=== PATIENT | female | born 1980 | race African-American/Black ===

== ENCOUNTER 2019-01-01 18:12 | Inpatient (IN) | payer OTHER ==
[2019-01-01 21:21] VITALS: BMI 20.3
--- NOTE | 2019-01-02 00:31 | HP ---
"CIWA Score Nausea/Vomitin (Queasy,vomitied earlier) Muscle Tremors: 4-Moderate,w/Arms Extend Anxiety: 2 Agitation: 1-Slight > Activity Paroxysmal Sweats: 3 (Increased facial moisture) Orientation: 0-Oriented Tacttile Disturbances: 1-Very Mild Itch/Numbness Auditory Disturbances: 0-None Visual Disturbances: 0-None Headache: 0-None Present CIWA-Ar Total Score: 13 - Admission Criteria OASAS Guidelines: Admission for Medically Managed Detox: Requires at least one of the followin. CIWA greater than 12 2. Seizures within the past 24 hours 3. Delirium tremens within the past 24 hours 4. Hallucinations within the past 24 hours 5. Acute intervention needed for co occurring medical disorder 6. Acute intervention needed for co occurring psychiatric disorder 7. Severe withdrawal that cannot be handled at a lower level of care (continued vomiting, continued diarrhea, abnormal vital signs) requiring intravenous medication and/or fluids 8. Patient presents the following: CIWA greater than 12 Admission Criteria Met: Admission criteria met Admission ROS [facility] Chief Complaint: Here for alcohol detox. Allergies/Adverse Reactions: Allergies Allergy/AdvReac Type Severity Reaction Status Date / Time No Known Allergies Allergy Verified 01/01/19 21:14 History of Present Illness: First admission for this 38 yo who presents w/ alcohol withdrawal seeking detox. States mandated into tx by ACS. MAGED: 0.0 UTox: + THC HCG: Neg Denies seizures, blackouts, or overdoses. Alcohol use since age 15. Currently drinks 2 pints liquor daily x 2 years. States last drink 2 days ago. Marijuana use since age 14. Currently smokes 2x/month. Nicotine use since age 17. Currently smokes 1/2 PPD. PMHx: Eczema; Pancreatitis; Hodgkin's lymphoma (remission x 4 years)[facility] MHHx: Depression. Denies thoughts of harming self or others. No MH Provider. No MH meds. SHx: Domiciled. Unemployed. Denies legal issues. Search Terms: Colleen Peterson, 1980 Search Date: 01/02/2019 12:16:35 AM The Drug Utilization Report below displays all of the controlled substance prescriptions, if any, that your patient has filled in the last twelve months. The information displayed on this report is compiled from pharmacy submissions to the Department, and accurately reflects the information as submitted by the pharmacies. This report was requested by: Aura Gonzalez | Reference #: [id number] There are no results for the search terms that you entered. Exam Limitations: No Limitations - Ebola screening Have you traveled outside of the country in the last 21 days: No (N) Have you had contact with anyone from an Ebola affected area: No Have you been sick,other than usual withdrawal symptoms: No Do you have a fever: No - Review of Systems Constitutional: Chills, Weight Stable EENT: reports: Blurred Vision Respiratory: reports: No Symptoms reported Cardiac: reports: No Symptoms Reported GI: reports: Vomiting (yesterday.), Abdominal cramping, Other : reports: No Symptoms Reported Musculoskeletal: reports: No Symptoms Reported Integumentary: reports: Rash (Severe eczema - on prednisone and hydroxyzone) Neuro: reports: Tingling (Toes of both feet) Endocrine: reports: No Symptoms Reported Hematology: reports: Other (Has a central port for chemotherapy. Not flushed in over a year.) Psychiatric: reports: Orientated x3, Anxious, Depressed (Denies thoughts of harming self or others.) Patient History - PPD History Previous Implant?: Yes (Will order TB Gold (QFT). Skin disorder. ) Documented Results: Negative w/proof Implanted On Prior R Admission?: No PPD to be Administered?: No - Reproductive History Patient is a Female of Child Bearing Age (11 -55 yrs old): Yes Last Menstrual Period: 12/31/18 Patient : Yes - Smoking Cessation Smoking history: Current every day smoker Have you smoked in the past 12 months: Yes Aproximately how many cigarettes per day: 10 Hx Chewing Tobacco Use: No Initiated information on smoking cessation: Yes 'Breaking Loose' booklet given: 01/02/19 - Substance & Tx. History Hx Alcohol Use: Yes Hx Substance Use: Yes Substance Use Type: Alcohol, Marijuana Hx Substance Use Treatment: Yes (in-patient senior living) - Substances abused Alcohol Substance route: Oral Frequency: Daily Amount used: 1 pint of Maribel/daily Age of first use: 15 Date of last use: 12/30/18 Admission Physical Exam BHS - Vital Signs Vital Signs: Vital Signs - 24 hr 01/01/19 21:07 Temperature 99.2 F Pulse Rate 98 H Respiratory 16 Rate Blood Pressure 126/84 - Physical General Appearance: Yes: Mild Distress, Thin, Tremorous, Sweating (Increased facial moisture), Anxious HEENTM: Yes: EOMI (Jerking movement of eyes upon lateral gaze), Hearing grossly Normal, Normocephalic, Normal Voice, GEOVANNI, Pharynx Normal Respiratory: Yes: Lungs Clear (Pulse Ox = 97 %), Normal Breath Sounds, No Respiratory Distress Neck: Yes: No masses,lesions,Nodules, Supple Breast: Yes: Breast Exam Deferred Cardiology: Yes: Regular Rhythm, Regular Rate, S1, S2 Abdominal: Yes: Non Tender, Flat, Soft, Increased Bowel Sounds Genitourinary: Yes: Within Normal Limits Back: Yes: Normal Inspection Musculoskeletal: Yes: full range of Motion, Gait Steady Extremities: Yes: Normal Capillary Refill, Tremors Neurological: Yes: import/export analyst II-XII NML intact (Jerking movement of eyes upon lateral gaze), Fully Oriented, Alert, Motor Strength 5/5, Normal Response Integumentary: Yes: Normal Color, Warm, Rash (Generalized dry, elevated, excoriated skin), Other (Round firm mass (R) subclavicular area - venous access device) Lymphatic: Yes: Within Normal Limits - Diagnostic (1) Alcohol dependence, uncomplicated Current Visit: Yes Status: Acute (2) Unspecified nystagmus Current Visit: Yes Status: Acute (3) Eczema Current Visit: Yes Status: Chronic Qualifiers: Eczema type: unspecified Qualified Code(s): L30.9 - Dermatitis, unspecified Comment: Generalized - severe (4) History of Hodgkin's lymphoma Current Visit: Yes Status: Chronic (5) History of vascular access device Current Visit: Yes Status: Chronic Comment: (R) subclavicular area (6) Nicotine dependence, unspecified, uncomplicated Current Visit: Yes Status: Chronic Qualifiers: Nicotine product type: cigarettes Qualified Code(s): F17.210 - Nicotine dependence, cigarettes, uncomplicated (7) Cannabis dependence, uncomplicated Current Visit: Yes Status: Acute Cleared for Admission S - Detox or Rehab [facility] Level of Care: Medically Managed Detox Regimen/Protocol: Librium Claeared for Rehab Admission: No Breathalyzer - Breathalyzer Breathalyzer: 0 Urine Drug Screen - Test Device Lot number: [id number] Expiration date: 08/07/20 - Control Is test valid?: Yes - Results Drug screen NEGATIVE: No Urine drug screen results: THC-Marijuana Inpatient Rehab Admission - Rehab Decision to Admit Inpatient rehab admission?: No"
[2019-01-02] MEDS ORDERED: MAGNESIUM CITRATE 300 ML BOTTLE PO PRN (01:33)
[2019-01-02] MEDS ORDERED: chlordiazePOXIDE HCL 10 MG CAPSULE PO PRN (01:33)
[2019-01-02] MEDS ORDERED: IBUPROFEN 400 MG TABLET (FP) PO PRN (01:33)
[2019-01-02] MEDS ORDERED: MENTHOL/PHENOL 1 EACH UD MM PRN (01:33)
[2019-01-02] MEDS ORDERED: BISMUTH SUBSALICYLATE 524 MG/30 ML UD PO PRN (01:33)
[2019-01-02] MEDS ORDERED: MAGNESIUM HYDROX 2400MG/30ML ORAL SUSPENSION 30 ML CUP PO PRN (01:33)
[2019-01-02] MEDS ORDERED: NICOTINE POLACRILEX 2 MG GUM BUC PRN (01:33)
[2019-01-02] MEDS ORDERED: ACETAMINOPHEN 325 MG TABLET (FP) PO PRN ×2 (01:33)
[2019-01-02] MEDS ORDERED: MAG HYDROX/AL HYDROX/SIMETH 30 ML UNIT-DOSE CUP PO PRN (01:33)
[2019-01-02] MEDS ORDERED: COLLOIDAL OATMEAL 1 BAR EACH TP PRN (01:37)
[2019-01-02] MEDS ORDERED: HYDROCORTISONE 2.5% LOTION - 1 BOTTLE TP PRN (01:40)
[2019-01-02] MEDS ORDERED: hydrOXYzine PAMOATE 25 MG CAPSULE (FP) PO ONE (01:45)
[2019-01-02] MEDS ORDERED: predniSONE 10 MG TABLET (UD) PO SCH (06:00)
[2019-01-02] MEDS: chlordiazePOXIDE HCL 25 MG CAPSULE PO SCH ×2 (06:06→13:24)
[2019-01-02] MEDS: NICOTINE 14 MG/24 HOURS TOPICAL PATCH TD SCH (11:22)
[2019-01-02] MEDS: PRENATAL VITAMINS W/ FOLIC ACID TABLET (FP) PO SCH (11:23)
[2019-01-02 11:51] LABS: HEMOGLOBIN 12.3 GM/dL (10.7-15.3); MCH 35.4 pg (25.7-33.7); MCHC 32.3 g/dl (32.0-36.0); MEAN CELL VOLUME 109.7 fl (80-96); MEAN PLT VOLUME 9.6 fl (7.5-11.1); PLATELET COUNT 155 K/MM3 (134-434); RBC 3.46 M/mm3 (3.60-5.2); RDW 15.7 % (11.6-15.6)
[2019-01-02 12:09] LABS: ALBUMIN 3.4 g/dl (3.4-5.0); BILIRUBIN,TOTAL 0.6 mg/dL (0.2-1); BLOOD UREA NITROGEN 7.8 mg/dL (7-18); CALCIUM 8.9 mg/dL (8.5-10.1); CREATININE 0.6 mg/dL (0.55-1.3); TOT PROT 6.8 g/dl (6.4-8.2)
--- NOTE | 2019-01-02 13:40 | PN ---
[facility] Progress Note Note: Pt's AST is 139, will change librium protocol to Ativan protocol. K+ level is 3.4, will give potassium chloride 40meq x2 doses today and repeat k + level in AM.
[2019-01-02] MEDS: predniSONE 20 MG TABLET (UD) PO SCH ×2 (14:33→21:56)
[2019-01-02] MEDS: POTASSIUM CHLORIDE ORAL LIQUID 20 MEQ/15 ML PO SCH ×2 (14:34→21:55)
[2019-01-02] MEDS: LORazepam 2 MG TABLET PO SCH ×2 (18:08→22:00)
[2019-01-02] MEDS: THIAMINE HCL 100 MG TABLET (FP) PO SCH (21:56)
[2019-01-03] MEDS ORDERED: chlordiazePOXIDE 5 MG CAPSULE PO SCH (05:00)
[2019-01-03] MEDS: predniSONE 20 MG TABLET (UD) PO SCH ×3 (06:33→22:50)
[2019-01-03] MEDS: LORazepam 2 MG TABLET PO SCH ×2 (06:33→13:08)
[2019-01-03] MEDS: PRENATAL VITAMINS W/ FOLIC ACID TABLET (FP) PO SCH (11:44)
[2019-01-03] MEDS: NICOTINE 14 MG/24 HOURS TOPICAL PATCH TD SCH (11:44)
[2019-01-03] MEDS: POTASSIUM CHLORIDE ORAL LIQUID 20 MEQ/15 ML PO SCH ×3 (11:44→22:23)
--- NOTE | 2019-01-03 16:50 | PN ---
S CIWA - CIWA Score Nausea/Vomitin-Mild Nausea/No Vomiting Muscle Tremors: 2 Anxiety: 2 Agitation: 2 Paroxysmal Sweats: 2 Orientation: 0-Oriented Tacttile Disturbances: 0-None Auditory Disturbances: 0-None Visual Disturbances: 0-None Headache: 0-None Present CIWA-Ar Total Score: 9 BHS Progress Note (SOAP) Subjective: Patient asleep but easily arousable, refused to speak with music writer Objective: 01/03/19 16:47 Last Vital Signs Temp Pulse Resp BP Pulse Ox 98.1 F 109 H 16 95/72 01/03/19 14:00 01/03/19 14:00 01/03/19 14:00 01/03/19 14:00 Laboratory Tests 01/02/19 01/02/19 01/02/19 09:40 09:40 09:40 WBC 3.0 L RBC 3.46 L Hgb 12.3 Hct 38.0 MCV 109.7 H MCH 35.4 H MCHC 32.3 RDW 15.7 H Plt Count 155 MPV 9.6 Sodium 139 Potassium 3.0 L Chloride 98 Carbon Dioxide 30 Anion Gap 10 BUN 7.8 Creatinine 0.6 Est GFR (CKD-EPI)AfAm 134.96 Est GFR (CKD-EPI)NonAf 116.44 Random Glucose 108 H Calcium 8.9 Total Bilirubin 0.6 AST 139 H ALT 53 Alkaline Phosphatase 102 Total Protein 6.8 Albumin 3.4 RPR Titer Nonreactive 01/03/19 07:40 WBC RBC Hgb Hct MCV MCH MCHC RDW Plt Count MPV Sodium Potassium 3.5 Chloride Carbon Dioxide Anion Gap BUN Creatinine Est GFR (CKD-EPI)AfAm Est GFR (CKD-EPI)NonAf Random Glucose Calcium Total Bilirubin AST ALT Alkaline Phosphatase Total Protein Albumin RPR Titer Labs reviewed: AST 139 Assessment: 01/03/19 16:48 Withdrawal sxs Noted with elevated LFT (AST) Plan: Continue detox Encouraged PO water intake Elevated LFT (AST): most likely r/t alcoholism, repeat AST
[2019-01-03] MEDS: LORazepam 1 MG TABLET PO SCH ×2 (18:17→22:24)
[2019-01-03] MEDS: THIAMINE HCL 100 MG TABLET (FP) PO SCH (22:27)
[2019-01-04] MEDS ORDERED: chlordiazePOXIDE HCL 10 MG CAPSULE PO PRN
[2019-01-04] MEDS: MELATONIN 5 MG TABLETS PO PRN ×2 (00:54→22:20)
[2019-01-04] MEDS ORDERED: chlordiazePOXIDE HCL 10 MG CAPSULE PO SCH (05:00)
[2019-01-04] MEDS: LORazepam 1 MG TABLET PO SCH (05:57)
[2019-01-04] MEDS: predniSONE 20 MG TABLET (UD) PO SCH ×3 (05:58→22:20)
[2019-01-04] MEDS: PRENATAL VITAMINS W/ FOLIC ACID TABLET (FP) PO SCH (11:18)
[2019-01-04] MEDS: LORazepam 0.5 MG TABLET PO SCH ×3 (11:18→22:20)
[2019-01-04] MEDS: NICOTINE 14 MG/24 HOURS TOPICAL PATCH TD SCH (11:21)
[2019-01-04] MEDS: POTASSIUM CHLORIDE ORAL LIQUID 20 MEQ/15 ML PO SCH ×2 (11:21→22:19)
--- NOTE | 2019-01-04 13:14 | PN ---
S CIWA - CIWA Score Nausea/Vomitin-No Nausea/No Vomiting Muscle Tremors: None Anxiety: 1-Mildly Anxious Agitation: 1-Slight > Activity Paroxysmal Sweats: No Perspiration Orientation: 0-Oriented Tacttile Disturbances: 2-Mild Itch/Numbness/Burn Auditory Disturbances: 0-None Visual Disturbances: 0-None Headache: 0-None Present CIWA-Ar Total Score: 4 BHS Progress Note (SOAP) Subjective: PATIENT ADMITTED FOR ETOH WITHDRAWAL SX. ROS: C/O MILD ANXIETY, ITCHING/BURNING TO HANDS/ARMS/FEET AND INTERRUPTED SLEEP. Objective: 01/04/19 13:12 Vital Signs Temperature 99.3 F 01/04/19 09:55 Pulse Rate 92 H 01/04/19 09:55 Respiratory Rate 20 01/04/19 09:55 Blood Pressure 113/77 01/04/19 09:55 O2 Sat by Pulse Oximetry (%) Laboratory Tests 01/01/19 01/02/19 01/02/19 23:47 09:40 09:40 WBC 3.0 L RBC 3.46 L Hgb 12.3 Hct 38.0 MCV 109.7 H MCH 35.4 H MCHC 32.3 RDW 15.7 H Plt Count 155 MPV 9.6 Sodium 139 Potassium 3.0 L Chloride 98 Carbon Dioxide 30 Anion Gap 10 BUN 7.8 Creatinine 0.6 Est GFR (CKD-EPI)AfAm 134.96 Est GFR (CKD-EPI)NonAf 116.44 Random Glucose 108 H Calcium 8.9 Total Bilirubin 0.6 AST 139 H ALT 53 Alkaline Phosphatase 102 Total Protein 6.8 Albumin 3.4 POC Urine HCG, Qual Negative RPR Titer 01/02/19 01/03/19 01/04/19 09:40 07:40 08:15 WBC RBC Hgb Hct MCV MCH MCHC RDW Plt Count MPV Sodium Potassium 3.5 Chloride Carbon Dioxide Anion Gap BUN Creatinine Est GFR (CKD-EPI)AfAm Est GFR (CKD-EPI)NonAf Random Glucose Calcium Total Bilirubin AST 110 H ALT Alkaline Phosphatase Total Protein Albumin POC Urine HCG, Qual RPR Titer Nonreactive PE: ALERT AND ORIENTED X 3 SKIN WARM, +DRY PATCHES TO FOREARMS (ECZEMA) +PERRLA, EOMS INTACT BL NECK SUPPLE, NO JVD GI NT, ND EXT NO TREMORS, AMB AD MIGUEL 01/04/19 13:13 Assessment: 01/04/19 13:13 ETOH WITHDRAWAL SX Plan: CONTINUE DETOX ADD EUCERIN CREAM BID FOR DRY SKIN FOR D/C IN AM MONITOR CLINICALLY
[2019-01-04] MEDS: MINERAL OIL/PETROLAT/WATER TOPICAL CREAM 113 GM JAR TP SCH ×2 (14:31→22:22)
[2019-01-04] MEDS: THIAMINE HCL 100 MG TABLET (FP) PO SCH (22:20)
[2019-01-05] MEDS ORDERED: LORazepam 0.5 MG TABLET PO PRN
[2019-01-05] MEDS ORDERED: LORazepam 0.5 MG TABLET PO ONE (05:00)
[2019-01-05] MEDS ORDERED: chlordiazePOXIDE HCL 10 MG CAPSULE PO ONE (05:00)
[2019-01-05 06:37] VITALS: BP 130/75; PULSE 64; TEMP 97.9
[2019-01-05] MEDS: predniSONE 20 MG TABLET (UD) PO SCH (06:40)
--- NOTE | 2019-01-05 09:31 | DS ---
[facility] Detox Discharge Summary Admission Date: 01/02/19 Discharge Date: 01/05/19 - History Present History: Alcohol Dependence, Cannabis Dependence - Physical Exam Results Vital Signs: Vital Signs Temperature 97.9 F 01/05/19 06:00 Pulse Rate 64 01/05/19 06:00 Respiratory Rate 16 01/05/19 06:00 Blood Pressure 130/75 01/05/19 06:00 O2 Sat by Pulse Oximetry (%) Pertinent Admission Physical Exam Findings: pt arrived in withdrawals Vital Signs Temperature 97.9 F 01/05/19 06:00 Pulse Rate 64 01/05/19 06:00 Respiratory Rate 16 01/05/19 06:00 Blood Pressure 130/75 01/05/19 06:00 O2 Sat by Pulse Oximetry (%) Laboratory Tests 01/01/19 01/02/19 01/02/19 23:47 09:40 09:40 WBC 3.0 L RBC 3.46 L Hgb 12.3 Hct 38.0 MCV 109.7 H MCH 35.4 H MCHC 32.3 RDW 15.7 H Plt Count 155 MPV 9.6 Sodium 139 Potassium 3.0 L Chloride 98 Carbon Dioxide 30 Anion Gap 10 BUN 7.8 Creatinine 0.6 Est GFR (CKD-EPI)AfAm 134.96 Est GFR (CKD-EPI)NonAf 116.44 Random Glucose 108 H Calcium 8.9 Total Bilirubin 0.6 AST 139 H ALT 53 Alkaline Phosphatase 102 Total Protein 6.8 Albumin 3.4 POC Urine HCG, Qual Negative RPR Titer 01/02/19 01/03/19 01/04/19 09:40 07:40 08:15 WBC RBC Hgb Hct MCV MCH MCHC RDW Plt Count MPV Sodium Potassium 3.5 Chloride Carbon Dioxide Anion Gap BUN Creatinine Est GFR (CKD-EPI)AfAm Est GFR (CKD-EPI)NonAf Random Glucose Calcium Total Bilirubin AST 110 H ALT Alkaline Phosphatase Total Protein Albumin POC Urine HCG, Qual RPR Titer Nonreactive pt feeing better no s/s of withdrawals no respiratory distress - Treatment Hospital Course: Detox Protocol Followed, Detoxed Safely, Responded well, Discharged Condition Good, Rehab Referral Accepted Patient has Accepted a Rehab Referral to: pt declined rehab; referral provided - Medication Discharge Medications: Ambulatory Orders Hydroxyzine HCl 50 mg PO BID 01/01/19 - Diagnosis (1) Alcohol dependence, uncomplicated Current Visit: Yes Status: Chronic (2) Cannabis dependence, uncomplicated Current Visit: Yes Status: Chronic (3) Eczema Current Visit: Yes Status: Chronic Qualifiers: Eczema type: unspecified Qualified Code(s): L30.9 - Dermatitis, unspecified (4) History of Hodgkin's lymphoma Current Visit: Yes Status: Chronic (5) History of vascular access device Current Visit: Yes Status: Chronic (6) Nicotine dependence, unspecified, uncomplicated Current Visit: Yes Status: Chronic Qualifiers: Nicotine product type: cigarettes Qualified Code(s): F17.210 - Nicotine dependence, cigarettes, uncomplicated - AMA Did Patient Leave Against Medical Advice: No
== END 2019-01-05 10:08 | disposition home or self-care (01) | DRG 775 ==
LOC: YASAS 18:12 → Y6N 01-02 01:42
PROVIDERS: ADMIT Surgery; ATTEND Allergy & Immunology
PROC: HZ2ZZZZ Detoxification Services for Substance Abuse Treatment (ICD-10-PCS; principal; 2019-01-02)
DX: F10.230 Alcohol dependence with withdrawal, uncomplicated (principal); F12.20 Cannabis dependence, uncomplicated; F17.210 Nicotine dependence, cigarettes, uncomplicated; H55.00 Unspecified nystagmus; L30.9 Dermatitis, unspecified; R94.5 Abnormal results of liver function studies; Z85.71 Personal history of Hodgkin lymphoma; Z95.828 Presence of other vascular implants and grafts
CPT/HCPCS: 36415; 80053; 81025; 84132; 84450; 85027; 86480; 86593